=== PATIENT | male | born 1945 | race Caucasian/White ===

== ENCOUNTER 2019-09-25 08:27 | Outpatient (CLI) | payer MEDICARE ==
[~2019-09-25 08:27] MED LIST: AMOX-291 PO; ASPI-515 PO; ATOR-2 PO; CARV12.52 PO; DIAZ2TAB3 PO; EZET10TA70 PO; FINA5TAB4 PO; FLUOCINOLONE EACH EAR; GLIP5TAB10 PO; HYDR-3241 PO; LISI1TAB20 PO; MAGN400T26 PO; OMEP40CA42 PO; POLY17PO5 PO; TAMS0.4C2 PO
[2019-09-25] MEDS ORDERED: TRIAMCINOLONE ACETONIDE 40 MG/ML, 1ML ONE ×2 (08:59→09:06)
[2019-09-25] MEDS ORDERED: LIDOCAINE-MPF 1%, 5ML ONE (09:00)
[2019-09-25] MEDS ORDERED: BUPIVACAINE/PF 0.5% ONE (09:00)
== END 2019-09-25 23:59 | disposition home or self-care (01) ==
LOC: RAD 08:27
PROVIDERS: ATTEND Nurse Practitioner
DX: M19.071 Primary osteoarthritis, right ankle and foot (principal); Z87.891 Personal history of nicotine dependence; Z79.899 Other long term (current) drug therapy
CPT/HCPCS: 20605; 77002; J3301

== ENCOUNTER → 2020-04-15 | Outpatient (CLI) | payer MEDICARE | END | disposition home or self-care (01) | LOC: CFH 13:49 | PROVIDERS: ATTEND Nurse Practitioner | DX: M17.11 Unilateral primary osteoarthritis, right knee (principal); M25.471 Effusion, right ankle; M25.671 Stiffness of right ankle, not elsewhere classified; M25.871 Other specified joint disorders, right ankle and foot ==